=== PATIENT | female | born 1980 | race Caucasian/White ===

== ENCOUNTER 2024-05-20 15:50 | Emergency (ER) | payer BC, SELFPAY ==
[2024-05-20 15:54] VITALS: BP 188/87
--- NOTE | 2024-05-20 16:30 | ED.GENMED ---
Addendum entered and electronically signed by Edith Stallings NP 05/26/24 10:33:
Pt called, states diarrhea cleared past 2 days today, started again and has had two episodes non bloody diarrhea, denies fever, occasional mild abd cramps; stool culutre + Campylobacter, Rx for Z pack sent to her pharmacy.
Original Note:
History of Present Illness
General
Chief Complaint: Abdominal Symptoms
Source: patient
Exam Limitations: none
Time Seen by Provider: 05/20/24 16:23
Nursing documentation reviewed up to this point in time: agreed with
History of Present Illness
History of Present Illness:
Patient to ED with complaint of abdominal cramping and diarrhea. Symptoms started on sunday after eating at a 'kabob' restaurant in [place]. SHe believes she had a fever Sunday PM but none since. Denies any vomiting. Brought self to ED for eval.
Had 'food poisoning' approx 8 years ago and symptoms are similar.
Past History
Past History
ED Past Medical History: None
ED Past Surgical History: None
Review of Systems
Review of Systems
Allergies reviewed?: Yes
All Other Systems: ROS reviewed and negative except as documented in HPI and ROS
Constitutional: Reports no symptoms
EENT: Reports no symptoms
Respiratory: Reports no symptoms
Cardiac: Reports no symptoms
ABD/GI: Reports abdominal pain (abdominal cramping) and diarrhea
: Reports no symptoms
Musculoskeletal: Reports no symptoms
Skin: Reports no symptoms
Neurological: Reports no symptoms
Psychiatric: Reports no symptoms
Phy Exam
General Physical Exam
General Presentation: well appearing and no apparent distress
General age: appears stated age
General Skin: warm and dry
General Habitus: normal
Cardiovascular Exam
Cardiovascular Exam: regular rate/rhythm
Gastrointestinal Exam
Gastrointestinal Exam: normal bowel sounds, soft, no organomegaly, no pulsatile mass, non distended and no cva tenderness
Palpation: generalized: Mild tenderness
Musculoskeletal Exam
Musculoskeletal Exam: full ROM and neuro vasc intact
Skin Exam
Skin Exam: normal color, warm/dry and no rash
Psychiatric Exam
Psychiatric Exam: normal mood/affect
Course
Orders/Labs/Results
Orders:
Orders
05/20/24 16:35
COVID-19 Antigen Urgent
Source: Nasal Swab
Complete Blood Count/With Diff Urgent
Comprehensive Metabolic Panel Urgent
HCG, Serum Qualitative Screen Urgent
Lipase Urgent
Test Result ONCE
05/20/24 18:06
Urinalysis Reflex To Culture Urgent
Date Specimen was Collected: 05/20/24
Time Specimen was Collected: 17:48
Urine Microscopic Reflex Cult Urgent
Ova & Parasites Giardia/Crypto AG [Giardia/Cryptosporidium Ag] Urgent
NOBLE Source: Feces/Stool
Specimen Description:
Date Specimen was Collected: 05/20/24
Time Specimen was Collected: 17:48
STOOL [C difficile Antigen & Toxins] Urgent
NOBLE Source: Feces/Stool
Specimen Description:
Date Specimen was Collected: 05/20/24
Time Specimen was Collected: 17:48
05/20/24 18:07
Stool Culture Urgent
NOBLE Source: Feces/Stool
Specimen Description:
Date Specimen was Collected: 05/20/24
Time Specimen was Collected: 17:48
Abnormal Lab Results
05/20/24 05/20/24
16:35 18:06
RBC 4.13 L 10^6/uL
(4.20-5.40)
MPV 10.8 H fL
(7.4-10.4)
Absolute Monos (auto) 0.9 H 10^3/uL
(0.1-0.6)
Lymphocytes % 16.0 L %
(20.5-51.1)
Monocytes % 11.1 H %
(1.7-9.3)
Total Protein 6.1 L g/dl
(6.3-8.2)
Ur Occult Blood Reflex 2+ A
(Negative)
Urine Bacteria (Reflex) Few A
(Negative)
05/20/24 16:35
05/20/24 16:35
Vital Signs
Initial and Last Documented VS:
Initial Vital Signs
Temp Pulse Resp BP Pulse Ox
97.5 F 96 18 188/87 100
05/20/24 15:54 05/20/24 15:54 05/20/24 15:54 05/20/24 15:54 05/20/24 15:54
Last Documented Vital Signs
Temp Pulse Resp BP Pulse Ox
97.5 F 70 18 106/67 100
05/20/24 15:54 05/20/24 19:16 05/20/24 19:16 05/20/24 19:16 05/20/24 19:16
*Pulse Oximetry
Patient hypoxic: no
*Critical Care Note
Total Time (30-74mins, 75-104mins- exclusive of procedures): Not Applicable
Update Note
Update Note:
Patient to ED for eval of diarrhea. She denies any abdominal pain. Eating and drinking without difficulty. Stool culture, ova/parasite pending. Labs without concerning findings. I don't feel CT wll add anything further. She is discharged home.
Will follow [facility] PCP. Given instructions on s/s to return to ED and she is agreeable to plan. Immodium prn.
ED Attending Note
-
Portions of this chart may have been created with voice recognition software.� Occasional wrong word or��sound alike� substitutions may have occurred due to the inherent limitations of voice recognition software.
Discharge Plan
Departure
Patient Disposition: Home (Routine Discharge)
Date of Disposition: 05/20/24
Time of Disposition: 18:53
Patient with high blood pressure during this ER visit?: No
Condition: Good
Covid-19: Not Applicable
Discharge Problem:
Diarrhea in adult patient
Instructions: Diarrhea in teens and adults
Referrals:
NONE,* [Family Provider] -
Activity Restrictions/Additional Instructions:
Return to the emergency department immediately for fever/chills, abdominal pain,vomiting, worsening diarrhea, or for any further concerns.
Interventions
Interventions:
*Risk Screen - Suicide Last Done: 05/20/24 15:54
*General Assessment Last Done: 05/20/24 15:54
*Neglect/Abuse Screening Last Done: 05/20/24 15:54
*Nursing Disposition Last Done: 05/20/24 19:17
IW-Wyzbwa-Ppopbuwpbp Assessment Last Done: 05/20/24 17:24
Discharge Date and Time
Discharge Date/Time: 05/20/24 19:17
Print Language: UKRAINIAN
[2024-05-20 16:44] LABS: % Basophils 0.5 % (0-2); % Eosinophils 1.4 % (0-6); % Immature Granulocytes 0.1 % (0-0.5); % Monocytes 11.1 % (1.7-9.3); % Neutrophils 70.9 % (42.2-75.2); Absolute Eosinophils 0.1 10^3/uL (0-0.7); Absolute Lymphocytes 1.3 10^3/uL (1.2-3.4); Absolute Monocytes 0.9 10^3/uL (0.1-0.6); Absolute Neutrophils 5.9 10^3/uL (1.4-6.5); Hemoglobin 12.8 g/dL (12.0-16.0); Mean Corp Hgb Conc. 34.6 g/dL (33.0-37.0); Mean Corpuscular Volume 89.6 fL (81.0-99.0); Mean Platelet Volume 10.8 fL (7.4-10.4); Nucleated Red Blood Cells % 0 %; Platelet Count 238 10^3/uL (130-400); Red Blood Cell Count 4.13 10^6/uL (4.20-5.40); Red Cell Dist. Width 13.4 % (11.5-14.5); White Blood Cell Count 8.4 10^3/uL (4.8-10.8)
[2024-05-20 17:06] LABS: ALT (SGPT) 20 U/L (0-35); AST (SGOT) 29 U/L (14-36); Alkaline Phosphatase 106 U/L (38-126); Blood Urea Nitrogen 9 mg/dl (7-17); Calcium 9.5 mg/dl (8.4-10.2); Carbon Dioxide 27 mmol/L (22-30); Chloride 106 mmol/L (98-107); Glucose 95 mg/dl (70-99); Lipase 100 U/L (23-300); Potassium 3.9 mmol/L (3.5-5.1); Sodium 136 mmol/L (135-145); Total Bilirubin 0.3 mg/dl (0.2-1.3); Total Protein 6.1 g/dl (6.3-8.2); eGFR > 60.00
[2024-05-20 17:07] LABS: COVID-19 Antigen Negative (Negative); HCG, Serum Qualitative Screen Negative
[2024-05-20 18:16] LABS: Urine Albumin Negative (Neg - Trace); Urine Bilirubin Negative (Negative); Urine Character Clear (Clear); Urine Color Yellow; Urine Glucose Negative (Negative); Urine Ketone Negative (Negative); Urine Leukocyte Negative (Negative); Urine Nitrite Negative (Negative); Urine Occult Blood 2+ (Negative); Urine Urobilinogen Negative (Neg - 1+); Urine pH 6.5 (5.0-9.0)
[2024-05-20 18:26] LABS: Urine Bacteria Few (Negative); Urine Red Blood Cell 0-2 /HPF (0-2); Urine White Cell 0-2 /HPF (0-5)
[2024-05-20 19:16] VITALS: BP 106/67
== END 2024-05-20 19:17 | disposition home or self-care (01) ==
LOC: EMR 15:50
PROVIDERS: Nurse Practitioner; EMERGENCY PHYSICIAN Student in an Organized Health Care Education/Training Program
DX: R10.9 Unspecified abdominal pain (principal); R19.7 Diarrhea, unspecified; Z11.52 Encounter for screening for COVID-19
CPT/HCPCS: 99283; 80053; 81003; 81015; 83690; 84703; 85025; 87045; 87046; 87324; 87328; 87329; 87427; 87449; 87811